=== PATIENT | male | born 1980 | race Caucasian/White ===

== ENCOUNTER 2019-03-20 23:31 | Emergency (ER) | payer SELFPAY ==
[~2019-03-20] VITALS: Ht 175.3 cm; Wt 78.0 kg
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
--- NOTE | 2019-03-21 00:26 | Diagnostic Imaging Report ---
Clavicle CPT code: 08720 INDICATION: Trauma TECHNIQUE: 2 views of the right clavicle obtained. COMPARISON: Shoulder series obtained at the same time FINDINGS: No evidence of fracture. The acromioclavicular joint is normally aligned. The AC joint distance is 10 mm. There is mild hypertrophy of the distal clavicle. IMPRESSION: No evidence of clavicular fracture. Mild hypertrophy of the distal clavicle. Signed by: Dr. Sterling Eduardo MD on 03/21/2019 12:23 AM
== END 2019-03-21 00:46 | disposition home or self-care (01) ==
LOC: ER 23:31
DX: S16.1XXA Strain of muscle, fascia and tendon at neck level, initial encounter (principal); S40.011A Contusion of right shoulder, initial encounter; V86.55XA Driver of 3- or 4- wheeled all-terrain vehicle (ATV) injured in nontraffic accident, initial encounter; Y92.821 Forest as the place of occurrence of the external cause; F17.210 Nicotine dependence, cigarettes, uncomplicated
CPT/HCPCS: 99282

== ENCOUNTER 2019-11-11 23:54 | Emergency (ER) | payer SELFPAY ==
[~2019-11-11] VITALS: Ht 175.3 cm; Wt 78.0 kg
[2019-11-12] MEDS ORDERED: IBUPROFEN 600 MG TAB PO STA (00:34)
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
== END 2019-11-12 02:00 | disposition home or self-care (01) ==
LOC: ER 11-12 00:15
DX: S90.31XA Contusion of right foot, initial encounter (principal); V86.59XA Driver of other special all-terrain or other off-road motor vehicle injured in nontraffic accident, initial encounter
CPT/HCPCS: 99283